=== PATIENT | female | born 1995 | race Caucasian/White ===

== ENCOUNTER 2017-02-16 22:52 | Emergency (ER) | payer SELFPAY ==
[~2017-02-16] VITALS: Ht 162.6 cm; Wt 110.0 kg
[~2017-02-16 22:52] MED LIST: Z.0.NO CURRENT MEDS; [UNRECOGNIZED DRUG - CODE] PO
[2017-02-16 22:54] VITALS: BP 122/73; PULSE 80; RESP 16; TEMP 98.5; O2SAT 98
[2017-02-17] MEDS ORDERED: DOXY100C PO (00:39)
[2017-02-17] MEDS ORDERED: BACT800T5 PO (00:39)
--- NOTE | 2017-02-17 00:43 | PD ---
HPI Chief Complaint: Skin Problem Time Seen by Provider: 00:40 Travel History International Travel<30 days: No Contact w/Intl Traveler<30days: No Traveled to known affect area: No History of Present Illness HPI 21-year-old white female presents to emergency department with a rash on her right earlobe and lumps on her right neck. She states that she had noticed this area a few days ago. She had squeezed a few pimples which has gotten more red and tender since he manipulated. She denies any fever chills. No history of skin infections in the past. Up-to-date with immunizations. Pain is mild. No alleviating factors. PFSH Past Medical History Medical History: Denies Significant Hx Diminished Hearing: No Immunizations Current: Yes Tetanus Vaccination: < 5 Years Influenza Vaccination: No ?: Unknown LMP: 6-24-17 : 0 Past Surgical History Surgical History: No Previous Surgery Social History Alcohol Use: No Tobacco Use: No Substance Use: Yes (marijaunia occasionally) Allergies-Medications (Allergen,Severity, Reaction): Coded Allergies: No Known Allergies (Verified , 08/07/08) Reported Meds & Prescriptions Reported Meds & Active Scripts Active Bactrim DS (Sulfamethoxazole-Trimethoprim) 800-160 Mg Tab 1 Tab PO BID Doxycycline Hyclate 100 Mg Cap 100 Mg PO BID Review of Systems Except as stated in HPI: all other systems reviewed are Neg Physical Exam Narrative GENERAL: Well-developed, well-nourished in no acute distress. Nontoxic appearing. HEAD: Normocephalic, atraumatic. EYES: Pupils equal round and reactive. Extraocular motions intact. No scleral icterus. No injection or drainage. ENT: TMs clear without erythema. The external auditory canals clear. Nose: clear . Posterior pharynx is pink and moist. No tonsillar edema or exudate. Uvula midline. Airway patent. NECK: Trachea midline.Supple, nontender, moves head freely. No central bony tenderness or spasm. CARDIOVASCULAR: Regular rate and rhythm without murmurs, gallops, or rubs. RESPIRATORY: Clear to auscultation. Breath sounds equal bilaterally. No wheezes , rales, or rhonchi. GASTROINTESTINAL: Abdomen soft, non-tender, nondistended. No hepato-splenomegaly , or palpable masses. No guarding. EXTREMITIES: No clubbing, cyanosis, or edema. No joint tenderness, effusion, or edema noted. BACK: Nontender without deformity or crepitance. No flank tenderness. Skin: Patient has a few open draining pustular lesions to the right earlobe. There is mild erythema and tenderness. She has posterior auricular as well as superficial cervical adenopathy. Data Data Last Documented VS Vital Signs Date Time Temp Pulse Resp B/P Pulse Ox O2 Delivery O2 Flow Rate FiO2 02/16/17 22:54 98.5 80 16 122/73 98 Room Air Orders Sulfamet-Trimeth Ds 800-160 Mg (Bactrim (02/17/17 00:45) Doxycycline (Vibramycin) (02/17/17 00:45) MDM Medical Decision Making Medical Screen Exam Complete: Yes Emergency Medical Condition: Yes Medical Record Reviewed: Yes Differential Diagnosis MDM: High Differential diagnoses: Abscess, folliculitis, cellulitis, lymphangitis, abrasion, contact dermatitis Narrative Course Patient has open draining superficial abscess to the right earlobe. Patient's given Bactrim DS and doxycycline 100 mg by mouth Diagnosis Primary Impression: right ear lobe superficial open draining abscess Patient Instructions: General Instructions Additional Instructions: Rest. Elevation. keep clean and dry. Warm compresses Daily wound care with soap, water and Neosporin. Three Advil every 6 hours. Doxycycline and Bactrim DS. Follow-up with a primary care doctor in one week. Return to the ER for any problems. Med/Other Pt SpecificInfo: Prescription(s) given, Wound Care Scripts Sulfamethoxazole-Trimethoprim (Bactrim DS)800-160 Mg Tab1 Tab PO BID #14 TAB Prov:Yaya Edmond MD 02/17/17 Doxycycline Hyclate 100 Mg [id number] Mg PO BID #14 CAP Prov:Yaya Edmond MD 02/17/17 Disposition: 01 DISCHARGE HOME Condition: Stable Armani Becker Feb 17, 2017 00:43
[2017-02-17] MEDS ORDERED: DOXYCYCLINE HYCLATE 100 MG CAP PO ONE (00:45)
[2017-02-17] MEDS ORDERED: SULFAMETHOXAZOLE-TRIMETHOPRIM DS 800-160 MG TAB PO ONE (00:45)
[2017-02-17 00:48] VITALS: BP 120/70
== END 2017-02-17 00:57 | disposition home or self-care (01) ==
LOC: NEPD 22:52
DX: H66.41 Suppurative otitis media, unspecified, right ear (principal); Z79.899 Other long term (current) drug therapy
CPT/HCPCS: 99284

== ENCOUNTER 2017-02-20 05:56 | Emergency (ER) | payer OTHER ==
[~2017-02-20 05:56] MED LIST changes: +BACT800T5 PO; +DOXY100C PO; -Z.0.NO CURRENT MEDS; -[UNRECOGNIZED DRUG - CODE] PO
[2017-02-20 06:01] VITALS: BP 127/69; PULSE 105; RESP 18; TEMP 99.6; O2SAT 98
--- NOTE | 2017-02-20 06:26 | PD ---
HPI Chief Complaint: Skin Problem Time Seen by Provider: 06:15 Travel History International Travel<30 days: No Contact w/Intl Traveler<30days: No Traveled to known affect area: No History of Present Illness HPI Healthy 21-year-old female here with complaint of skin problem. Patient seen here in our emergency department 02/16 with complaint of pustules on the right earlobe. Patient had several pustules on the right earlobe. She does have or ears. That had not been wearing earrings for several years. This looked somewhat infected and she was started on Bactrim and doxycycline and discharged to home. Patient has been compliant with this. She states that the areas on the right earlobe have been gradually worsening and she is now had a spot on the left side of the neck that is new. She's had some lymphadenopathy that been present since her initial visit and this is not significantly worsened though it is slightly tender. At home today she had a low-grade temperature of 100.6, prompting ER visit. These areas were initially itchy, but no longer. PFSH Past Medical History Medical History: Denies Significant Hx Diminished Hearing: No Immunizations Current: Yes : 0 Social History Alcohol Use: No Tobacco Use: No Substance Use: Yes (marijaunia occasionally) Allergies-Medications (Allergen,Severity, Reaction): Coded Allergies: No Known Allergies (Verified , 02/20/17) Reported Meds & Prescriptions Reported Meds & Active Scripts Active Bactrim DS (Sulfamethoxazole-Trimethoprim) 800-160 Mg Tab 1 Tab PO BID Doxycycline Hyclate 100 Mg Cap 100 Mg PO BID Review of Systems Except as stated in HPI: all other systems reviewed are Neg Physical Exam Narrative GENERAL: Well-appearing female in no acute distress SKIN: Several excoriated pustules on the right ear. There is one on the posterior aspect of the ear that is slightly blistered, full with serosanguineous fluid but no purulence. On the left anterior neck just over the sternocleidomastoid there is a raised erythematous and slightly yellow lesion approximately 2 x 2 centimeters with excoriations. Minimal surrounding erythema/induration HEAD: Normocephalic. EYES: No scleral icterus. No injection or drainage. ENT: No nasal bleeding or discharge. Mucous membranes pink and moist. TMs clear bilaterally. NECK: Shoddy anterior and posterior cervical lymphadenopathy CARDIOVASCULAR: Regular rate and rhythm. RESPIRATORY: No accessory muscle use. MUSCULOSKELETAL: Normal gait NEUROLOGICAL: Awake and alert. Motor grossly within normal limits. Normal speech. PSYCHIATRIC: Appropriate mood and affect; insight and judgment normal. Data Data Last Documented VS Vital Signs Date Time Temp Pulse Resp B/P Pulse Ox O2 Delivery O2 Flow Rate FiO2 02/20/17 06:01 99.6 105 18 127/69 98 Room Air Orders Basic Metabolic Panel (Bmp) (02/20/17 06:23) Complete Blood Count With Diff (02/20/17 06:23) C-Reactive Protein (Crp) (02/20/17 06:23) Acetaminophen (Tylenol) (02/20/17 06:30) MDM Medical Decision Making Medical Screen Exam Complete: Yes Emergency Medical Condition: Yes Medical Record Reviewed: Yes Differential Diagnosis 21-year-old female here with complaint of skin lesion. There are papule/ pustules on the right ear and left neck. These are primarily draining serosanguineous fluid. Differential includes cellulitis, folliculitis, contact dermatitis, other Narrative Course Patient is overall well-appearing, but given low-grade fever at home mother was very concerned and ultimately wanted blood work. CBC, BMP and CRP were ordered but I do not think this is going to gear changer significantly. A wound culture was obtained. Since her symptoms have worsened, will discontinue these antibiotics and change her to clindamycin. Given the itching, will also prescribe topical triamcinolone for home. Patient was referred to outpatient dermatology. Diagnosis Primary Impression: Cellulitis of right earlobe Additional Impression: Cellulitis, neck Referrals: Fashion Merchandiser call for appointment Additional Instructions: Follow-up with biological sciences instructor as discussed. [place] [facility] [address] [facility] [place] [address] Discontinue Bactrim, doxycycline. Start clindamycin and triamcinolone as prescribed. Med/Other Pt SpecificInfo: Prescription(s) given, Med Stopped Scripts Triamcinolone Topical 0.1 % Oint1 Applic TOPICAL TID #30 GM Ref 0 Prov:Jessica Garrison MD 02/20/17 Clindamycin 300 Mg [id number] Mg PO TID #21 CAP Ref 0 Prov:Jessica Garrison MD 7/16/17 Disposition: 01 DISCHARGE HOME Condition: Stable Evens,Jessica N. MD Feb 20, 2017 06:26
[2017-02-20] MEDS ORDERED: ACETAMINOPHEN 500 MG CPLT PO ONE (06:30)
[2017-02-20] MEDS ORDERED: TRIAM.1%T TOPICAL (06:31)
[2017-02-20] MEDS ORDERED: CLIN1CAP6 PO (06:31)
[2017-02-20 06:37] LABS: BASOPHIL % 0.5 % (0.0-2.0); EOSINOPHIL % 0.6 % (0.0-4.0); HEMATOCRIT 39.7 % (35.0-46.0); HEMO FLAGS DIFF FINAL; LYMPH % 9.7 % (9.0-44.0); LYMPHOCYTE # 0.5 TH/MM3 (1.0-4.8); MEAN CELL VOLUME 86.8 FL (80.0-100.0); MEAN CORPUSCULAR HEMOGLOBIN 29.7 PG (27.0-34.0); MEAN CORPUSCULAR HGB CONC 34.2 % (32.0-36.0); NEUT % 71.2 % (16.0-70.0); PLATELET COUNT 213 TH/MM3 (150-450); RED BLOOD COUNT 4.57 MIL/MM3 (4.00-5.30); RED CELL DISTRIBUTION WIDTH 12.5 % (11.6-17.2); WHITE BLOOD COUNT 5.6 TH/MM3 (4.0-11.0)
[2017-02-20 07:09] LABS: BICARBONATE 21.3 MEQ/L (21.0-32.0); POTASSIUM 3.4 MEQ/L (3.5-5.1)
== END 2017-02-20 08:43 | disposition home or self-care (01) ==
LOC: NEPE 05:56
DX: H60.11 Cellulitis of right external ear (principal); L03.221 Cellulitis of neck; Z79.899 Other long term (current) drug therapy
CPT/HCPCS: 80048; 85025; 86140; 86403; 87070; 87186; 99284